=== PATIENT | male | born 1990 | race Two or more races ===

== ENCOUNTER → 2021-09-08 15:36 | Outpatient (BNVA) | payer OTHER, SELFPAY | PROVIDERS: Visit Provider Physician Assistant Medical | DX: S61.411A Laceration without foreign body of right hand, initial encounter (principal); W26.8XXA Contact with other sharp object(s), not elsewhere classified, initial encounter | CPT/HCPCS: 12002; 99204 ==

== ENCOUNTER → 2021-09-10 10:42 | Outpatient (BNVA) | payer OTHER, SELFPAY | PROVIDERS: Visit Provider Physician Assistant | DX: S61.411A Laceration without foreign body of right hand, initial encounter (principal); W27.8XXA Contact with other nonpowered hand tool, initial encounter | CPT/HCPCS: 99213 ==

== ENCOUNTER → 2021-09-17 11:00 | Outpatient (BNVA) | payer OTHER, SELFPAY | PROVIDERS: Visit Provider Physician Assistant | DX: S61.411D Laceration without foreign body of right hand, subsequent encounter (principal); W26.9XXD Contact with unspecified sharp object(s), subsequent encounter; Z48.02 Encounter for removal of sutures | CPT/HCPCS: 99212; 99213 ==